=== PATIENT | female | born 1955 ===

== ENCOUNTER 2017-08-03 13:49 | Observation (INO) | payer OTHER ==
[2017-08-03 14:07] VITALS: BMI 43.3
[2017-08-03] MEDS ORDERED: Sodium Chloride 0.9% 1,000 ML IV STA (14:35)
[2017-08-03] MEDS ORDERED: Famotidine 20mg/50ml 0 MG/0 ML BAG IVPB ONE (14:40)
[2017-08-03] MEDS ORDERED: Famotidine 20mg/50ml 20 MG/50 ML BAG IVPB ONE ×2 (14:45→20:26)
--- NOTE | 2017-08-03 14:45 | ED PDOC ---
HPI: Abdomen Time Seen by Provider: 08/03/17 14:09 Chief Complaint (Nursing): Abdominal Pain Chief Complaint (Provider): Abdominal Pain History Per: Patient History/Exam Limitations: no limitations Onset/Duration Of Symptoms: Days (x4) Current Symptoms Are (Timing): Still Present Location Of Pain/Discomfort: Epigastric Associated Symptoms: Nausea. denies: Fever, Diarrhea Additional Complaint(s): 62 year old female, with a past medical history of gastritis and HTN, presented to the ED complaining of epigastric pain associated with nausea with onset of 4 days. Patient reports he was admitted into [facility] [address] days [address] with a CT scan suggestive of appendicitis. Patient had no pain or RLQ tenderness at the time and surgeon opted for observation. She presents to the ED today with no RLQ pain or tenderness. She denies fever, hematochezia, or diarrhea. PCP: Zahida Wilde Past Medical History Reviewed: Historical Data, Nursing Documentation, Vital Signs Vital Signs: Last Vital Signs Temp 98.9 F 08/03/17 14:17 Pulse 69 08/03/17 14:17 Resp 20 08/03/17 14:17 BP 148/117 H 08/03/17 14:17 Pulse Ox 100 08/03/17 14:50 - Medical History PMH: Anemia, Arthritis, Diabetes, Gastritis, HTN, Hypercholesterolemia, Osteoporosis Denies: Chronic Kidney Disease - Surgical History Surgical History: Appendectomy, Cholecystectomy - Family History Family History: States: Unknown Family Hx - Social History Current smoker - smoking cessation education provided: No Alcohol: None Drugs: Denies - Immunization History Hx Tetanus Toxoid Vaccination: No Hx Influenza Vaccination: No Hx Pneumococcal Vaccination: No - Home Medications Home Medications: Ambulatory Orders Medication Instructions Recorded Dicyclomine [Bentyl] 10 mg PO DAILY 03/08/17 Metoclopramide [Reglan] 5 mg PO TID PRN 03/08/17 Pravastatin Sodium 40 mg PO DAILY 03/08/17 Omeprazole 40 mg PO DAILY #30 capsule. 03/10/17 Sucralfate [Carafate] 1 gm PO TID #90 tablet 03/10/17 Isoniazid [Niazid] 300 mg PO DAILY 08/01/17 Levofloxacin [Levaquin] 750 mg PO DAILY #7 tablet 08/02/17 Lisinopril/Hydrochlorothiazide 1 tab PO DAILY #30 tablet 08/02/17 [Lisinopril-Hctz 20-25 mg Tab] Metronidazole [Flagyl] 500 mg PO TID #21 tablet 08/02/17 - Allergies Allergies/Adverse Reactions: Allergies Allergy/AdvReac Type Severity Reaction Status Date / Time aspirin Allergy RASH Verified 08/01/17 10:00 Review of Systems ROS Statement: Except As Marked, All Systems Reviewed And Found Negative Constitutional: Negative for: Fever Gastrointestinal: Positive for: Abdominal Pain (epigastric pain). Negative for : Hematochezia Genitourinary Female: Negative for: Dysuria Physical Exam - Reviewed Nursing Documentation Reviewed: Yes Vital Signs Reviewed: Yes - Physical Exam Appears: Positive for: Non-toxic, No Acute Distress Head Exam: Positive for: ATRAUMATIC, NORMOCEPHALIC Skin: Positive for: Normal Color, Warm, Dry Eye Exam: Positive for: Normal appearance Neck: Positive for: Normal, Painless ROM Cardiovascular/Chest: Positive for: Regular Rate, Rhythm. Negative for: Murmur Respiratory: Positive for: Normal Breath Sounds. Negative for: Wheezing, Respiratory Distress Gastrointestinal/Abdominal: Positive for: Tenderness (Epigastric and RUQ tenderness). Negative for: Guarding, Rebound, Other (RLQ tenderness) Back: Positive for: Normal Inspection. Negative for: L CVA Tenderness, R CVA Tenderness Extremity: Positive for: Normal ROM. Negative for: Tenderness, Swelling Neurologic/Psych: Positive for: Alert, Oriented. Negative for: Motor/Sensory Deficits - Laboratory Results Result Diagrams: 08/03/17 15:20 08/03/17 15:20 - ECG O2 Sat by Pulse Oximetry: 100 (RA) Pulse Ox Interpretation: Normal Medical Decision Making Medical Decision Making: Initial Impression: Epigastric pain Initial Plan: CMP Lipase ED urine dipstick CBC Bentyl 10mg PO Sodium chloride 1000mL IV Pepcid 20mg IV Famotidine 20mg in 50mL IV Scribe Attestation: Documented by Jean Carlos Perdomo acting as a scribe for Boone Hidalgo MD. Provider Scribe Attestation: All medical record entries made by the Scribe were at my direction and personally dictated by me. I have reviewed the chart and agree that the record accurately reflects my personal performance of the history, physical exam, medical decision making, and the department course for this patient. I have also personally directed, reviewed, and agree with the discharge instructions and disposition. Disposition - Clinical Impression Clinical Impression: Pancreatitis - Patient ED Disposition Is Patient to be Admitted: Yes - Disposition Disposition Time: 16:07 Condition: FAIR Forms: [employer] (Malagasy) - Pt Status Changed To: Hospital Disposition Of: Observation - POA Present On Arrival: None
[2017-08-03 15:37] LABS: BASO % 0.6 % (0.0-2.0); EOS # 0.2 K/uL (0.0-0.7); EOS % 2.6 % (0.0-4.0); HEMOGLOBIN 12.3 g/dL (12.0-16.0); LYMPH # 1.5 K/uL (1.0-4.3); MEAN CELL VOLUME 91.2 fl (81.0-99.0); MEAN CORPUSCULAR HEMOGLOBIN 29.6 pg (27.0-31.0); MEAN CORPUSCULAR HGB CONC 32.5 g/dL (33.0-37.0); MEAN PLATELET VOLUME 7.9 fl (7.2-11.7); MONO # 0.5 K/uL (0.0-0.8); MONO % 6.3 % (0.0-10.0); NEUT # 5.3 K/uL (1.8-7.0); NEUT % 70.5 % (50.0-75.0); NRBC % 0.1 % (0.0-0.0); RBC 4.16 Mil/uL (3.80-5.20); RED CELL DISTRIBUTION WIDTH 14.4 % (11.5-14.5); WHITE BLOOD COUNT 7.5 K/uL (4.8-10.8)
[2017-08-03 15:41] LABS: ALB/GLOB RATIO 1.2 (1.0-2.1); ALBUMIN 4.1 g/dL (3.5-5.0); CALCIUM 9.3 mg/dL (8.4-10.2); GFR AFRICAN-AMERICAN > 60; GFR NON-AFRICAN AMERICAN > 60; LIPASE 396 U/L (23-300)
[2017-08-03 15:43] LABS: ALT/SGPT 27 U/L (9-52); AST/SGOT 36 U/L (14-36); BLOOD UREA NITROGEN 14 mg/dl (7-17)
--- NOTE | 2017-08-03 17:27 | US ---
HISTORY: pancreatitis COMPARISON: None. TECHNIQUE: Sonographic evaluation of the right upper quadrant of the abdomen. FINDINGS: LIVER: Measures 14.9 cm in length. Normal echogenicity of the liver parenchyma. No mass. No intrahepatic bile duct dilatation. GALLBLADDER: Not identified. Clinically correlate with potential prior cholecystectomy. COMMON BILE DUCT: Measures 15.5 mm. No choledocholithiasis appreciated. This may be a function of prior cholecystectomy state however is unclear whether the patient had prior cholecystectomy definitively and further clinical correlation is recommended as discussed above. Even with prior cholecystectomy, this may be abnormal. No prominent intrahepatic biliary dilatation is identified however. PANCREAS: The head and tail are obscured by overlying bowel screw gas within neck and body unremarkable appearing. No pancreatic duct dilatation is seen as imaged. RIGHT KIDNEY: Measures 9.9 cm in length. Normal echogenicity. No calculus, mass, or hydronephrosis. AORTA: No aneurysmal dilatation. IVC: Unremarkable. OTHER FINDINGS: None . IMPRESSION: Prominent CBD is identified measuring up to 15.5 mm caliber without demonstrated choledocholithiasis or prominent intrahepatic bile duct dilatation. Pancreatic head is obscured however there is no prominent pancreatic duct in the visualized neck and body of the pancreas. The gallbladder is not identified and patient may be status post cholecystectomy in the past. CBD dilatation may be a function of prior cholecystectomy though 15.5 mm dilatation is still relatively prominent even post cholecystectomy. Clinically correlate further.
--- NOTE | 2017-08-03 19:08 | CP.PCM.CON ---
History of Present Illness - History of Present Illness History of Present Illness: Surgery Consult note Reason for consult: previously seen acute appendicitis 62F w/ pmhx significant for morbid obesity s/p gastric bypass 8 years ago, HTN, HLD was previously admitted to [facility] for Acute appendicitis. Patients abd pain resolved, however had continued nausea. during that time patient was treated with IVAbx. She presents to [facility] with continued nausea nad mid- epigastric pain, no associated vomiting and minimal generalized abdominal pain. She states having normal BM, however unable to eat. Denies recent foreign travel or sick contacts Denies: fevers, chills, chest pain, shortness of breath, vomiting, diarrhea, changes in urinary or bowel habits PMH: stated above PSH: gastric bypass 8 years ago ALL: aspirin SocialHx: denies etoh, tobacco, recreational drug use FH: unremarkable Review of Systems - Review of Systems All systems: reviewed and no additional remarkable complaints except - Constitutional Constitutional: As Per HPI Past Patient History - Past Medical History & Family History Past Medical History?: Yes - Past Social History Alcohol: None Drugs: Denies - CARDIAC Hx Hypercholesterolemia: Yes Hx Hypertension: Yes - PULMONARY Hx Respiratory Disorders: No - NEUROLOGICAL Hx Neurological Disorder: No - HEENT Hx HEENT Problems: No - RENAL Hx Chronic Kidney Disease: No - ENDOCRINE/METABOLIC Hx Endocrine Disorders: No - HEMATOLOGICAL/ONCOLOGICAL Hx Anemia: Yes - INTEGUMENTARY Hx Dermatological Problems: No - MUSCULOSKELETAL/RHEUMATOLOGICAL Hx Arthritis: Yes Hx Osteoporosis: Yes - GASTROINTESTINAL Hx Gastritis: Yes - GENITOURINARY/GYNECOLOGICAL Hx Genitourinary Disorders: No - PSYCHIATRIC Hx Psychophysiologic Disorder: No Hx Substance Use: No - SURGICAL HISTORY Hx Appendectomy: Yes Hx Cholecystectomy: Yes - ANESTHESIA Hx Anesthesia: Yes Hx Anesthesia Reactions: No Hx Malignant Hyperthermia: No Meds Allergies/Adverse Reactions: Allergies Allergy/AdvReac Type Severity Reaction Status Date / Time aspirin Allergy RASH Verified 08/01/17 10:00 - Medications Medications: Current Medications Sodium Chloride (Sodium Chloride 0.9%) 1,000 mls @ 100 mls/hr IV .Q10H STA Stop: 08/04/17 00:34 Physical Exam - Constitutional Appears: Non-toxic, No Acute Distress Additional comments: Morbidly obese - Head Exam Head Exam: ATRAUMATIC - Eye Exam Eye Exam: EOMI - ENT Exam ENT Exam: Mucous Membranes Moist - Respiratory Exam Respiratory Exam: NORMAL BREATHING PATTERN. absent: Accessory Muscle Use, Respiratory Distress - Cardiovascular Exam Cardiovascular Exam: +S1, +S2. absent: Bradycardia, Tachycardia - GI/Abdominal Exam GI & Abdominal Exam: Soft, Tenderness (mid-epigastric). absent: Firm, Guarding , Hernia Additional comments: no rebound tenderness negative mcburnys, rovsings, or psoas sign - Extremities Exam Extremities exam: Positive for: normal inspection. Negative for: calf tenderness - Back Exam Back exam: absent: CVA tenderness (L), CVA tenderness (R) - Neurological Exam Neurological exam: Alert, Oriented x3 - Psychiatric Exam Psychiatric exam: Normal Affect - Skin Skin Exam: Intact, Warm Results - Vital Signs Recent Vital Signs: Last Vital Signs Temp 98.9 F 08/03/17 14:17 Pulse 69 08/03/17 14:17 Resp 20 08/03/17 14:17 BP 148/117 H 08/03/17 14:17 Pulse Ox 100 08/03/17 16:08 - Labs Result Diagrams: 08/03/17 15:20 08/03/17 15:20 Labs: Laboratory Results - last 24 hr 08/03/17 08/03/17 15:20 15:20 WBC 7.5 RBC 4.16 Hgb 12.3 Hct 37.9 MCV 91.2 MCH 29.6 MCHC 32.5 L RDW 14.4 Plt Count 292 MPV 7.9 Neut % (Auto) 70.5 Lymph % (Auto) 20.0 [place] % (Auto) 6.3 Eos % (Auto) 2.6 Baso % (Auto) 0.6 Neut # (Auto) 5.3 Lymph # (Auto) 1.5 [place] # (Auto) 0.5 Eos # (Auto) 0.2 Baso # (Auto) 0.0 Sodium 138 Potassium 4.5 Chloride 105 Carbon Dioxide 20 L Anion Gap 18 BUN 14 Creatinine 0.8 Est GFR ( Amer) > 60 Est GFR (Non-Af Amer) > 60 Random Glucose 93 Calcium 9.3 Total Bilirubin 0.9 AST 36 D ALT 27 Alkaline Phosphatase 83 Total Protein 7.6 Albumin 4.1 Globulin 3.4 Albumin/Globulin Ratio 1.2 Lipase 396 H Assessment & Plan - Assessment and Plan (Free Text) Assessment: 62F w/ increased nausea, minimal abdominal pain, recent EGD shown to have gastric ulcers. US: dilated CBD 15mm Plan: recommend GI consult for dilated CBD PPI IVF serial abd exams will continue to follow discussed w/ Dr. Serrato surgical attending PGY1
[2017-08-03] MEDS ORDERED: Acetaminophen-Codeine 300/30 mg Tab PO PRN (20:12)
[2017-08-03] MEDS ORDERED: Acetaminophen-Codeine 300/30 mg Tab ONE (20:26)
[2017-08-03] MEDS: Dextrose 5%/0.9% NS 1,000 ML IV SCH (20:57)
[2017-08-04] MEDS: Dextrose 5%/0.9% NS 1,000 ML IV SCH ×3 (04:53→17:11)
[2017-08-04 08:24] VITALS: RESP 20
[2017-08-04] MEDS ORDERED: Famotidine 20mg/50ml Premix IVPB SCH (09:00)
--- NOTE | 2017-08-04 09:14 | CP.PCM.PN ---
Subjective - Date & Time of Evaluation Date of Evaluation: 08/04/17 Time of Evaluation: 06:30 - Subjective Subjective: Surgery- Dr. Serrato Patient seen and examined at bedside this AM. Has continued pain mid- epigastrum. Pain better than yesterday. Denies RLQ pain. No nausea, vomiting, chest pain, shortness of breath, changes in BM Objective - Vital Signs/Intake and Output Vital Signs (last 24 hours): Temp Pulse Resp BP Pulse Ox 98.1 F 55 L 20 104/64 97 08/04/17 08:24 08/04/17 08:24 08/04/17 08:24 08/04/17 08:24 08/04/17 08:24 - Medications Medications: Current Medications Acetaminophen/Codeine Phosphate (Tylenol/Codeine 300 Mg/30 Mg) 1 tab PO Q6 PRN PRN Reason: Pain, moderate (4-7) Last Admin: 08/03/17 20:32 Dose: 1 tab Dicyclomine HCl (Bentyl) 10 mg PO BID [facility] Enoxaparin Sodium (Lovenox) 40 mg SC DAILY [facility] PRN Reason: Protocol Dextrose/Sodium Chloride (Dextrose 5%/0.9% Ns 1000 Ml) 1,000 mls @ 150 mls/hr IV .Q6H40M [facility] Stop: 08/04/17 20:21 Last Admin: 08/04/17 04:53 Dose: Not Given Famotidine (Pepcid 20mg/50ml Premix) 20 mg in 50 mls @ 100 mls/hr IVPB DAILY [facility] Isoniazid (Niazid) 300 mg PO DAILY [facility] PRN Reason: Protocol Levofloxacin (Levaquin) 750 mg PO DAILY [facility] PRN Reason: Protocol Metoclopramide HCl (Reglan) 5 mg PO BID [facility] Ondansetron HCl (Zofran Odt) 4 mg PO Q4 PRN PRN Reason: Nausea/Vomiting Pantoprazole Sodium (Protonix Ec Tab) 40 mg PO DAILY [facility] Pravastatin Sodium (Pravachol) 40 mg PO DAILY [facility] Sucralfate (Carafate Tab) 1 gm PO TID [facility] - Labs Labs: 08/03/17 15:20 08/03/17 15:20 - Constitutional Appears: Non-toxic, No Acute Distress - Head Exam Head Exam: ATRAUMATIC - Eye Exam Eye Exam: EOMI. absent: Scleral icterus - ENT Exam ENT Exam: Mucous Membranes Moist - Respiratory Exam Respiratory Exam: NORMAL BREATHING PATTERN. absent: Accessory Muscle Use, Respiratory Distress - GI/Abdominal Exam GI & Abdominal Exam: Soft, Tenderness (tender to deep palpation mid-epigastrum) - Extremities Exam Extremities Exam: Normal Inspection. absent: Calf Tenderness - Neurological Exam Neurological Exam: Alert, Awake, Oriented x3 - Psychiatric Exam Psychiatric exam: Normal Affect - Skin Skin Exam: Intact, Warm Assessment and Plan - Assessment and Plan (Free Text) Assessment: 62F w/ increased nausea, minimal abdominal pain, recent EGD shown to have gastric ulcers. Plan: - f/u GI recs - f/u AM labs - PPI - IVF - serial abd exams - will continue to follow - discussed w/ Dr. Serrato surgical attending PGY1
[2017-08-04 10:30] LABS: HEMOGLOBIN 11.1 g/dL (12.0-16.0); MEAN CELL VOLUME 89.9 fl (81.0-99.0); MEAN CORPUSCULAR HEMOGLOBIN 29.5 pg (27.0-31.0); MEAN CORPUSCULAR HGB CONC 32.8 g/dL (33.0-37.0); RBC 3.77 Mil/uL (3.80-5.20); RED CELL DISTRIBUTION WIDTH 14.3 % (11.5-14.5); WHITE BLOOD COUNT 5.1 K/uL (4.8-10.8)
[2017-08-04 10:49] LABS: ALB/GLOB RATIO 1.1 (1.0-2.1); ALBUMIN 3.5 g/dL (3.5-5.0); ALT/SGPT 30 U/L (9-52); AST/SGOT 40 U/L (14-36); BLOOD UREA NITROGEN 10 mg/dl (7-17); CALCIUM 8.6 mg/dL (8.4-10.2); GFR AFRICAN-AMERICAN > 60; GFR NON-AFRICAN AMERICAN > 60; HDL CHOLESTEROL 49 MG/DL (30-70)
[2017-08-04 10:55] LABS: LDL CHOLESTEROL 50 mg/dL (0-129)
[2017-08-04] MEDS: levoFLOXacin 750 MG TAB PO SCH (11:14)
[2017-08-04] MEDS: Enoxaparin 40 mg Syringe SC SCH (11:14)
[2017-08-04] MEDS: Famotidine 20mg/50ml 20 MG/50 ML BAG IVPB SCH (11:15)
[2017-08-04] MEDS: Pravastatin Sodium 40 MG TAB PO SCH (11:16)
[2017-08-04] MEDS: Pantoprazole 40 mg EC Tab PO SCH (11:22)
--- NOTE | 2017-08-04 12:33 | CP.PCM.CON ---
<Lilia Vogt - Last Filed: 08/04/17 12:25> History of Present Illness - History of Present Illness History of Present Illness: GI Fellow PGY4 Consult Note This is a 62yF with pmhx of latent TB, morbid obesity s/p gastric bypass 8yrs again, HTN, HLD, PUD presenting with complaints of epigastric abdominal pain. Pt was just discharged from [facility] one day ago where she was treated conservatively for acute appendicitis and her abdominal pain resolved and she was discharged on levaquin and flagyl. Per the pt she returned because of mild epigastric abdominal pain, no nausea or vomiting.Pt had an EGD with Dr. Finn 2017: Bilroth1, anastomatic ulcer, cratered 10mm, path neg for malignancy or H.pylori. Pt denies taking PPI at home. GI was consulted for CBD 15mm and possible pancreatitis. ROS: A 12pt ROS was negative except as above PmHX: As stated in hPI PsHX: As stated in HPI SHX: denies etog drugs, tobacco FHx: neg for colon cancer Past Patient History - Past Medical History & Family History Past Medical History?: Yes - Past Social History Alcohol: None Drugs: Denies - CARDIAC Hx Hypercholesterolemia: Yes Hx Hypertension: Yes - PULMONARY Hx Respiratory Disorders: No - NEUROLOGICAL Hx Neurological Disorder: No - HEENT Hx HEENT Problems: No - RENAL Hx Chronic Kidney Disease: No - ENDOCRINE/METABOLIC Hx Endocrine Disorders: No - HEMATOLOGICAL/ONCOLOGICAL Hx Anemia: Yes - INTEGUMENTARY Hx Dermatological Problems: No - MUSCULOSKELETAL/RHEUMATOLOGICAL Hx Arthritis: Yes Hx Osteoporosis: Yes - GASTROINTESTINAL Hx Gastritis: Yes - GENITOURINARY/GYNECOLOGICAL Hx Genitourinary Disorders: No - PSYCHIATRIC Hx Psychophysiologic Disorder: No Hx Substance Use: No - SURGICAL HISTORY Hx Appendectomy: Yes Hx Cholecystectomy: Yes - ANESTHESIA Hx Anesthesia: Yes Hx Anesthesia Reactions: No Hx Malignant Hyperthermia: No Meds Allergies/Adverse Reactions: Allergies Allergy/AdvReac Type Severity Reaction Status Date / Time aspirin Allergy RASH Verified 08/01/17 10:00 - Medications Medications: Current Medications Acetaminophen/Codeine Phosphate (Tylenol/Codeine 300 Mg/30 Mg) 1 tab PO Q6 PRN PRN Reason: Pain, moderate (4-7) Last Admin: 08/03/17 20:32 Dose: 1 tab Dicyclomine HCl (Bentyl) 10 mg PO BID [facility] Last Admin: 08/04/17 11:14 Dose: 10 mg Enoxaparin Sodium (Lovenox) 40 mg SC DAILY [facility] PRN Reason: Protocol Last Admin: 08/04/17 11:14 Dose: 40 mg Dextrose/Sodium Chloride (Dextrose 5%/0.9% Ns 1000 Ml) 1,000 mls @ 150 mls/hr IV .Q6H40M [facility] Stop: 08/04/17 20:21 Last Admin: 08/04/17 11:04 Dose: 150 mls/hr Famotidine (Pepcid 20mg/50ml Premix) 20 mg in 50 mls @ 100 mls/hr IVPB DAILY [facility] Last Admin: 08/04/17 11:15 Dose: 100 mls/hr Isoniazid (Niazid) 300 mg PO DAILY [facility] PRN Reason: Protocol Last Admin: 08/04/17 11:15 Dose: 300 mg Levofloxacin (Levaquin) 750 mg PO DAILY [facility] PRN Reason: Protocol Last Admin: 08/04/17 11:14 Dose: 750 mg Metoclopramide HCl (Reglan) 5 mg PO BID [facility] Last Admin: 08/04/17 11:15 Dose: 5 mg Ondansetron HCl (Zofran Odt) 4 mg PO Q4 PRN PRN Reason: Nausea/Vomiting Pantoprazole Sodium (Protonix Ec Tab) 40 mg PO DAILY [facility] Last Admin: 08/04/17 11:22 Dose: 40 mg Pravastatin Sodium (Pravachol) 40 mg PO DAILY [facility] Last Admin: 08/04/17 11:16 Dose: 40 mg Sucralfate (Carafate Tab) 1 gm PO TID [facility] Last Admin: 08/04/17 11:13 Dose: 1 gm Physical Exam - Constitutional Appears: Non-toxic, No Acute Distress - Head Exam Head Exam: ATRAUMATIC, NORMAL INSPECTION, NORMOCEPHALIC - Eye Exam Eye Exam: EOMI, Normal appearance, PERRL Pupil Exam: PERRL - ENT Exam ENT Exam: Mucous Membranes Moist, Normal Exam - Neck Exam Neck exam: Positive for: Normal Inspection - Respiratory Exam Respiratory Exam: Clear to Auscultation Bilateral, NORMAL BREATHING PATTERN - Cardiovascular Exam Cardiovascular Exam: REGULAR RHYTHM, +S1, +S2 - GI/Abdominal Exam GI & Abdominal Exam: Normal Bowel Sounds, Soft. absent: Distended, Organomegaly , Tenderness - Rectal Exam Rectal Exam: Deferred - Extremities Exam Extremities exam: Positive for: full ROM, normal inspection - Neurological Exam Neurological exam: Alert, Oriented x3 - Psychiatric Exam Psychiatric exam: Normal Affect, Normal Mood - Skin Skin Exam: Dry, Intact, Normal Color, Warm Results - Vital Signs Recent Vital Signs: Last Vital Signs Temp 98.1 F 08/04/17 08:24 Pulse 55 L 08/04/17 08:24 Resp 20 08/04/17 08:24 BP 104/64 08/04/17 08:24 Pulse Ox 97 08/04/17 08:24 - Labs Result Diagrams: 08/04/17 09:05 08/04/17 09:05 Labs: Laboratory Results - last 24 hr 08/03/17 08/03/17 08/04/17 15:20 15:20 09:05 WBC 7.5 5.1 RBC 4.16 3.77 L Hgb 12.3 11.1 L Hct 37.9 33.9 L MCV 91.2 89.9 MCH 29.6 29.5 MCHC 32.5 L 32.8 L RDW 14.4 14.3 Plt Count 292 296 MPV 7.9 Neut % (Auto) 70.5 Lymph % (Auto) 20.0 [place] % (Auto) 6.3 Eos % (Auto) 2.6 Baso % (Auto) 0.6 Neut # (Auto) 5.3 Lymph # (Auto) 1.5 [place] # (Auto) 0.5 Eos # (Auto) 0.2 Baso # (Auto) 0.0 Sodium 138 Potassium 4.5 Chloride 105 Carbon Dioxide 20 L Anion Gap 18 BUN 14 Creatinine 0.8 Est GFR ( Amer) > 60 Est GFR (Non-Af Amer) > 60 Random Glucose 93 Calcium 9.3 Total Bilirubin 0.9 AST 36 D ALT 27 Alkaline Phosphatase 83 Total Protein 7.6 Albumin 4.1 Globulin 3.4 Albumin/Globulin Ratio 1.2 Triglycerides Cholesterol LDL Cholesterol Direct HDL Cholesterol Lipase 396 H Vitamin B12 TSH 3rd Generation 08/04/17 09:05 WBC RBC Hgb Hct MCV MCH MCHC RDW Plt Count MPV Neut % (Auto) Lymph % (Auto) [place] % (Auto) Eos % (Auto) Baso % (Auto) Neut # (Auto) Lymph # (Auto) [place] # (Auto) Eos # (Auto) Baso # (Auto) Sodium 141 Potassium 3.9 Chloride 107 Carbon Dioxide 25 Anion Gap 13 BUN 10 Creatinine 0.7 Est GFR ( Amer) > 60 Est GFR (Non-Af Amer) > 60 Random Glucose 123 H Calcium 8.6 Total Bilirubin 0.6 AST 40 H ALT 30 Alkaline Phosphatase 80 Total Protein 6.6 Albumin 3.5 Globulin 3.1 Albumin/Globulin Ratio 1.1 Triglycerides 54 Cholesterol 126 LDL Cholesterol Direct 50 HDL Cholesterol 49 Lipase Vitamin B12 495 TSH 3rd Generation 3.25 Assessment & Plan - Assessment and Plan (Free Text) Assessment: This is a 62yF with pmhx of HTN, HLD< obesity s/p gastric bypass, PUD presenting with complaints of epigastric abdominal pain. 1. Abdominal pain-improving 2. PUD 3. CBD dilated 4. Elevated lipase Plan: -Continue supportive care with pain control and antiemetics -Abdominal pain is minimal, likely from PUD -EGD 02/2017 with anastamotic ulcer -Recommend PPI daily and carafate -Pt needs to followup outpt with her private GI doc for repeat EGD for ulcer healing -No plan for GI intervention at this time -CBD dilated s/p cholecystectomy and also from pain medications opioids during recent admission, LFTS wnl no signs of obstruction -No signs of acute pancreatitis, lipase 395 (300 us upper limit of normal) no CT imaging findings of pancreatitis, and abdominal pain not consistent of typica ; pancreatitis pain -From GI perspective pt okay for dc home on abx prescribed by surgery -Please call with any questions or concerns <Dariel Buckner - Last Filed: 08/04/17 15:36> Meds - Medications Medications: Current Medications Acetaminophen/Codeine Phosphate (Tylenol/Codeine 300 Mg/30 Mg) 1 tab PO Q6 PRN PRN Reason: Pain, moderate (4-7) Last Admin: 08/03/17 20:32 Dose: 1 tab Dicyclomine HCl (Bentyl) 10 mg PO BID [facility] Last Admin: 08/04/17 11:14 Dose: 10 mg Enoxaparin Sodium (Lovenox) 40 mg SC DAILY [facility] PRN Reason: Protocol Last Admin: 08/04/17 11:14 Dose: 40 mg Dextrose/Sodium Chloride (Dextrose 5%/0.9% Ns 1000 Ml) 1,000 mls @ 150 mls/hr IV .Q6H40M [facility] Stop: 08/04/17 20:21 Last Admin: 08/04/17 11:04 Dose: 150 mls/hr Famotidine (Pepcid 20mg/50ml Premix) 20 mg in 50 mls @ 100 mls/hr IVPB DAILY [facility] Last Admin: 08/04/17 11:15 Dose: 100 mls/hr Isoniazid (Niazid) 300 mg PO DAILY [facility] PRN Reason: Protocol Last Admin: 08/04/17 11:15 Dose: 300 mg Levofloxacin (Levaquin) 750 mg PO DAILY [facility] PRN Reason: Protocol Last Admin: 08/04/17 11:14 Dose: 750 mg Metoclopramide HCl (Reglan) 5 mg PO BID [facility] Last Admin: 08/04/17 11:15 Dose: 5 mg Ondansetron HCl (Zofran Odt) 4 mg PO Q4 PRN PRN Reason: Nausea/Vomiting Pantoprazole Sodium (Protonix Ec Tab) 40 mg PO DAILY [facility] Last Admin: 08/04/17 11:22 Dose: 40 mg Pravastatin Sodium (Pravachol) 40 mg PO DAILY [facility] Last Admin: 08/04/17 11:16 Dose: 40 mg Sucralfate (Carafate Tab) 1 gm PO TID [facility] Last Admin: 08/04/17 11:13 Dose: 1 gm Results - Vital Signs Recent Vital Signs: Last Vital Signs Temp 98.1 F 08/04/17 08:24 Pulse 55 L 08/04/17 08:24 Resp 20 08/04/17 08:24 BP 104/64 08/04/17 08:24 Pulse Ox 97 08/04/17 08:24 - Labs Result Diagrams: 08/04/17 09:05 08/04/17 09:05 Labs: Laboratory Results - last 24 hr 08/03/17 08/03/17 08/04/17 15:20 15:20 09:05 WBC 7.5 5.1 RBC 4.16 3.77 L Hgb 12.3 11.1 L Hct 37.9 33.9 L MCV 91.2 89.9 MCH 29.6 29.5 MCHC 32.5 L 32.8 L RDW 14.4 14.3 Plt Count 292 296 MPV 7.9 Neut % (Auto) 70.5 Lymph % (Auto) 20.0 [place] % (Auto) 6.3 Eos % (Auto) 2.6 Baso % (Auto) 0.6 Neut # (Auto) 5.3 Lymph # (Auto) 1.5 [place] # (Auto) 0.5 Eos # (Auto) 0.2 Baso # (Auto) 0.0 Sodium 138 Potassium 4.5 Chloride 105 Carbon Dioxide 20 L Anion Gap 18 BUN 14 Creatinine 0.8 Est GFR ( Amer) > 60 Est GFR (Non-Af Amer) > 60 Random Glucose 93 Calcium 9.3 Total Bilirubin 0.9 AST 36 D ALT 27 Alkaline Phosphatase 83 Total Protein 7.6 Albumin 4.1 Globulin 3.4 Albumin/Globulin Ratio 1.2 Triglycerides Cholesterol LDL Cholesterol Direct HDL Cholesterol Lipase 396 H Vitamin B12 TSH 3rd Generation 08/04/17 09:05 WBC RBC Hgb Hct MCV MCH MCHC RDW Plt Count MPV Neut % (Auto) Lymph % (Auto) [place] % (Auto) Eos % (Auto) Baso % (Auto) Neut # (Auto) Lymph # (Auto) [place] # (Auto) Eos # (Auto) Baso # (Auto) Sodium 141 Potassium 3.9 Chloride 107 Carbon Dioxide 25 Anion Gap 13 BUN 10 Creatinine 0.7 Est GFR ( Amer) > 60 Est GFR (Non-Af Amer) > 60 Random Glucose 123 H Calcium 8.6 Total Bilirubin 0.6 AST 40 H ALT 30 Alkaline Phosphatase 80 Total Protein 6.6 Albumin 3.5 Globulin 3.1 Albumin/Globulin Ratio 1.1 Triglycerides 54 Cholesterol 126 LDL Cholesterol Direct 50 HDL Cholesterol 49 Lipase Vitamin B12 495 TSH 3rd Generation 3.25 Attending/Attestation - Attestation I have personally seen and examined this patient.: Yes I have fully participated in the care of the patient.: Yes I have reviewed all pertinent clinical information: Yes Notes (Text): 08/04/17 15:34 This is a 62 year old F with pmhx of HTN, HLD< obesity s/p gastric bypass, PUD presenting with complaints of epigastric abdominal pain s/p EGD 02/2017 showing anastomotic clean ulcer. CBD dilated s/p CCY to 15 mm with opioid intake. Lipase 395 (borderline high for [facility] lab). No s/s of clinical pancreatitis. Recommend continuing PPI. No further work up. Pain resolved today and tolearting diet. Thank you for letting us participate in the care of your patient
--- NOTE | 2017-08-04 17:23 | HP ---
CHIEF COMPLAINT: Abdominal pain. HISTORY OF PRESENT ILLNESS: This is 62-year-old female who was recently admitted to [facility] and workup showed possible appendicitis, and the patient was discharged from the hospital. The patient continued to have abdominal pain, which got worse. So, the patient was brought to emergency room and found to have acute pancreatitis and was admitted for further management. REVIEW OF SYSTEMS: Positive for abdominal pain. Review of system otherwise is negative for headache, dizziness, syncope, loss of consciousness, chest pain, shortness of breath, nausea, vomiting, diarrhea, constipation, any new joint or extremity pain. Review of systems of all other organ system is unremarkable. PAST MEDICAL HISTORY: Significant for hypertension, elevated cholesterol, osteoporosis, anemia, arthritis. PAST SURGICAL HISTORY: Remarkable for gastric bypass surgery and appendectomy. PERSONAL HISTORY: Patient is currently nonsmoker, nondrinker. No substance abuse. MEDICATIONS: The patient is on multiple medications, which is as per reconciliation sheet, which was reviewed and ordered. ALLERGIES: THE PATIENT IS ALLERGIC TO ASPIRIN. FAMILY HISTORY: Noncontributory. PHYSICAL EXAMINATION: GENERAL: A well-built, well-nourished, morbidly obese 62-year-old female in no acute distress. VITAL SIGNS: Temperature 98.1, pulse 60, respirations 19, blood pressure 120/76. HEENT: Pupils reacting to light. No JVD. No thyromegaly. No lymphadenopathy. No nystagmus. Normocephalic, atraumatic skull. HEART: S1 and S2, normal and regular. No significant murmur, gallop or rub is heard. LUNGS: Show good bilateral air exchange. No rales or rhonchi. ABDOMEN: Soft and nontender. No organomegaly. No fluid. No sign of acute abdomen. No guarding. No rigidity. No rebound. Bowel sounds are plus and normal. EXTREMITIES: No edema. No calf swelling. No tenderness. No acute ischemia. ACUTE CARE ASSISTANT: Essentially unchanged. DIAGNOSTIC DATA: Available diagnostic data reviewed. WBC 7.5, hemoglobin 12.3, hematocrit 37.9, and platelets 292. Sodium 138, potassium 4.5, chloride 105, bicarb 20, BUN 14, and creatinine 0.8. Lipase level is 396. Abdominal sonogram shows dilated duct. ADMITTING IMPRESSION: Acute pancreatitis and morbid obesity with body mass index of 43. PLAN: As ordered. Case and plan discussed with the patient. Brandon Mulligan MD
[2017-08-05 07:23] LABS: AMYLASE 74 U/L (30-110); LIPASE 67 U/L (23-300)
--- NOTE | 2017-08-05 08:39 | CP.PCM.PN ---
<Sea Navarro - Last Filed: 08/05/17 08:47> Subjective - Date & Time of Evaluation Date of Evaluation: 08/05/17 Time of Evaluation: 07:00 - Subjective Subjective: Surgery- Dr. Bazzi Patient seen and examined at bedside this AM. pt feeling better. Tolerating regular diet without abd pain. Denies nausea, vomiting. Objective - Vital Signs/Intake and Output Vital Signs (last 24 hours): Temp Pulse Resp BP Pulse Ox 98.6 F 66 20 113/72 97 08/05/17 00:35 08/05/17 00:35 08/05/17 00:35 08/05/17 00:35 08/05/17 00:35 - Medications Medications: Current Medications Acetaminophen/Codeine Phosphate (Tylenol/Codeine 300 Mg/30 Mg) 1 tab PO Q6 PRN PRN Reason: Pain, moderate (4-7) Last Admin: 08/03/17 20:32 Dose: 1 tab Dicyclomine HCl (Bentyl) 10 mg PO BID [facility] Last Admin: 08/04/17 17:11 Dose: 10 mg Enoxaparin Sodium (Lovenox) 40 mg SC DAILY [facility] PRN Reason: Protocol Last Admin: 08/04/17 11:14 Dose: 40 mg Famotidine (Pepcid 20mg/50ml Premix) 20 mg in 50 mls @ 100 mls/hr IVPB DAILY [facility] Last Admin: 08/04/17 11:15 Dose: 100 mls/hr Isoniazid (Niazid) 300 mg PO DAILY [facility] PRN Reason: Protocol Last Admin: 08/04/17 11:15 Dose: 300 mg Levofloxacin (Levaquin) 750 mg PO DAILY [facility] PRN Reason: Protocol Last Admin: 08/04/17 11:14 Dose: 750 mg Metoclopramide HCl (Reglan) 5 mg PO BID [facility] Last Admin: 08/04/17 17:11 Dose: 5 mg Ondansetron HCl (Zofran Odt) 4 mg PO Q4 PRN PRN Reason: Nausea/Vomiting Pantoprazole Sodium (Protonix Ec Tab) 40 mg PO DAILY [facility] Last Admin: 08/04/17 11:22 Dose: 40 mg Pravastatin Sodium (Pravachol) 40 mg PO DAILY [facility] Last Admin: 08/04/17 11:16 Dose: 40 mg Sucralfate (Carafate Tab) 1 gm PO TID [facility] Last Admin: 08/04/17 17:11 Dose: 1 gm - Labs Labs: 08/04/17 09:05 08/04/17 09:05 - Constitutional Appears: Non-toxic, No Acute Distress - Head Exam Head Exam: ATRAUMATIC - Eye Exam Eye Exam: EOMI. absent: Scleral icterus - ENT Exam ENT Exam: Mucous Membranes Moist - Respiratory Exam Respiratory Exam: NORMAL BREATHING PATTERN. absent: Accessory Muscle Use, Respiratory Distress - Cardiovascular Exam Cardiovascular Exam: +S1, +S2. absent: Bradycardia, Tachycardia - GI/Abdominal Exam GI & Abdominal Exam: Soft, Tenderness (tender to deep palpation supra-umbilical) . absent: Distended, Firm, Guarding, Rigid - Extremities Exam Extremities Exam: Normal Inspection - Neurological Exam Neurological Exam: Alert, Awake, Oriented x3 - Psychiatric Exam Psychiatric exam: Normal Affect - Skin Skin Exam: Intact, Warm Assessment and Plan - Assessment and Plan (Free Text) Assessment: 62F w/ pancreatitis Lipase trending down; nausea and abd pain resolving Plan: abx Can remain on regular diet; will cancel MRCP this AM if tolerating diet; no acute surgical intervention at this time cleared for discharge home on PPI and Abx from a surgical stand point follow up in 1 week in office discussed w/ [facility] <Cristhian Bazzi - Last Filed: 08/06/17 18:12> Objective - Vital Signs/Intake and Output Vital Signs (last 24 hours): Temp Pulse Resp BP Pulse Ox 98 F 54 L 20 124/68 96 08/05/17 09:00 08/05/17 09:00 08/05/17 09:00 08/05/17 09:00 08/05/17 09:00 - Labs Labs: 08/04/17 09:05 08/05/17 10:50 Attending/Attestation - Attestation I have personally seen and examined this patient.: Yes I have fully participated in the care of the patient.: Yes I have reviewed all pertinent clinical information, including history, physical exam and plan: Yes Notes (Text): Pt was seen and examined at bedside Agree with above note and assessment Pt with epigastric pain and tenderness Lipase is elevated Labs and radiology reviewed Ass: Possible Pancreatitis, Gastritis Plan: C.w IV antibiotics Repeat LFTs in am GI consult No need for any surgical intervention at present Plan d.w pt in detail
[2017-08-05 09:00] VITALS: BP 124/68; PULSE 54; TEMP 98; O2SAT 96
[2017-08-05] MEDS: Famotidine 20mg/50ml 20 MG/50 ML BAG IVPB SCH (09:05)
[2017-08-05] MEDS: Enoxaparin 40 mg Syringe SC SCH (09:05)
[2017-08-05] MEDS: levoFLOXacin 750 MG TAB PO SCH (09:06)
[2017-08-05] MEDS: Pravastatin Sodium 40 MG TAB PO SCH (09:06)
[2017-08-05] MEDS: Pantoprazole 40 mg EC Tab PO SCH (09:07)
--- NOTE | 2017-08-05 10:50 | PN ---
DATE: 08/05/2017 SUBJECTIVE: The patient is seen and examined. Interim events noted. Consults noted and appreciated. Gastroenterology and Surgery followup and intervention noted and appreciated. The patient remains in regular medical floor. Feels much better. Abdominal pain resolved. No chest pain. No shortness of breath. No nausea, vomiting, or diarrhea. PHYSICAL EXAMINATION: GENERAL: The patient is in no acute distress. VITAL SIGNS: Stable. HEART: S1, S2, normal and regular. LUNGS: Good bilateral air exchange. ABDOMEN: Soft, nontender. No sign of acute abdomen. No guarding, no rigidity, no rebound. Bowel sounds are present and normal. EXTREMITIES: No edema, no calf swelling, no tenderness. No acute ischemia. CENTRAL NERVOUS SYSTEM: Essentially unchanged. DIAGNOSTIC DATA: Available diagnostic data reviewed. Today's lipase level is pending. Chemistries, otherwise, unremarkable. Overall, the patient is medically stable. PLAN: As ordered. Brandon Mulligan MD
[2017-08-05 11:30] LABS: ALB/GLOB RATIO 1.1 (1.0-2.1); ALT/SGPT 26 U/L (9-52); AST/SGOT 27 U/L (14-36); BLOOD UREA NITROGEN 11 mg/dl (7-17); CALCIUM 8.3 mg/dL (8.4-10.2); GFR AFRICAN-AMERICAN > 60; GFR NON-AFRICAN AMERICAN > 60
== END 2017-08-05 14:30 | disposition home or self-care (01) ==
LOC: H.ER 13:49 → H.ERHOLD 16:05 → H.MEDSURG1 23:34
PROVIDERS: ADMIT Internal Medicine; ATTEND Internal Medicine
DX: K85.90 Acute pancreatitis without necrosis or infection, unspecified (principal); I10 Essential (primary) hypertension; K29.70 Gastritis, unspecified, without bleeding; E11.9 Type 2 diabetes mellitus without complications; E78.00 Pure hypercholesterolemia, unspecified; M81.0 Age-related osteoporosis without current pathological fracture; M19.90 Unspecified osteoarthritis, unspecified site; Z98.84 Bariatric surgery status; Z88.6 Allergy status to analgesic agent; E66.01 Morbid (severe) obesity due to excess calories; Z68.41 Body mass index [BMI] 40.0-44.9, adult; E78.5 Hyperlipidemia, unspecified; K25.9 Gastric ulcer, unspecified as acute or chronic, without hemorrhage or perforation
CPT/HCPCS: 36415; 76705; 80053; 80061; 82150; 82607; 83690; 84443; 85025; 85027; 96372; 99285; G0378; J1650; J2270; J7042